=== PATIENT | female | born 2005 | race Two or more races ===

== ENCOUNTER 2024-08-11 14:48 | Emergency (ER) | payer MEDICAID, OTHER ==
[~2024-08-11] VITALS: Ht 160 cm; Wt 54.3 kg
[2024-08-11] MEDS: ONDANSETRON HCL 4 MG/2 ML VIAL IV ONE (15:30)
--- NOTE | 2024-08-11 15:33 | ED.PDOC ---
GI ASSESSMENT HPI Comments 19-year-old presents since for food poisoning x1 day. Alleviation therapies were not tried Denies fevers chills night sweats unintentional weight loss Denies nausea vomiting diarrhea Denies blood in the stool Denies sick contact with similar symptoms Denies family history of GI cancer Denies urgency, frequency, hematuria Denies vaginal discharge Last menstrual two weeks ago Chief Complaint: Abdominal Pain Time Seen by MD: 15:29 Primary Care Provider: NONE Reviewed Notes: Nurses Notes, Medications, Allergies Allergies: Coded Allergies: NO KNOWN ALLERGIES (Unverified , 08/11/24) Home Meds Active Scripts Ciprofloxacin Hcl (Ciprofloxacin Hcl) 500 Mg Tab, 1 TAB PO BID for 7 Days, #14 TAB 0 Refills Prov:BRIONNA DOCKERY 08/11/24 Sucralfate (CARAFATE) 1 Gm Tab, 1 GM PO TID for 2 Days, #6 TAB 0 Refills Prov:RODOLFO DIALLO NP 08/11/24 Famotidine (PEPCID TABLET) 20 Mg Tb, 1 TAB PO BIDP PRN for 7 Days, #14 TAB 0 Refills Prov:RODOLFO DIALLO NP 08/11/24 Ondansetron HCl (Ondansetron) 4 Mg Tab, 4 MG PO Q8HP PRN for 3 Days, #9 TAB 0 Refills Prov:RODOLFO DIALLO NP 08/11/24 Information Source: Patient Mode of Arrival: Ambulatory Past Medical History PAST MEDICAL HISTORY: GERD Surgical History: Denies all surgeries [employer] History: No Pertinent [employer]OR History Family History Family History: Reviewed,noncontributory to illness, Unknown Social History Smoker: Non-Smoker Alcohol: Denies ETOH Use Drugs: Denies Drug Use Lives In: Home Constitutional: denies: chills, diaphoresis, fatigue, fever, malaise, sweats, weakness, others EENTM: denies: blurred vision, double vision, ear bleeding, ear discharge, ear drainage, ear pain, ear ringing, eye pain, eye redness, hearing loss, mouth pain, mouth swelling, nasal discharge, nose bleeding, nose congestion, nose pain, photophobia, tearing, throat pain, throat swelling, voice changes, others Respiratory: denies: cough, hemoptysis, orthopnea, SOB at rest, shortness of breath, SOB with excertion, stridor, wheezing, others Cardiovascular: denies: chest pain, dizzy spells, diaphoresis, Dyspnea on exertion, edema, irregular heart beat, left arm pain, lightheadedness, palpitations, PND, syncope, others Gastrointestinal: reports: others (As stated in HPI) Genitourinary: denies: abnormal vagina bleeding, burning, dyspareunia, dysuria, flank pain, frequency, hematuria, incontinence, pain, , vagina discharge, urgency, others Neurological: denies: dizziness, fainting, headache, left sided numbness, left sided weakness, numbness, paresthesia, pre-existing deficit, right sided numbness, right sided weakness, seizure, speech problems, tingling, tremors, weakness, others Musculoskeletal: denies: back pain, gout, joint pain, joint swelling, muscle pain, muscle stiffness, neck pain, others Integumetry: denies: bruises, change in color, change in hair/nails, dryness, laceration, lesions, lumps, rash, wounds, others Allergic/Immunocompromised: denies: Difficulty Healing, Frequent Infections, Hives, Itching, others Hematologic/Lymphatic: denies: anemia, blood clots, easy bleeding, easy bruising, swollen glands, others Endocrine: denies: excessive hunger, excessive sweating, excessive thirst, excessive urination, flushing, intolerance to cold, intolerance to heat, unexplained weight gain, unexplained weight loss, others Psychiatric: denies: anxiety, bipolar disorder, depression, hopeless, panic disorder, schizophrenia, sleepless, suicidal, others All Other Systems: Reviewed and Negative (Per HPI) Physical Exam General Appearance: No Apparent Distress HEENT: Normal ENT Inspection, PERRL/EOMI, Pharynx Normal, TMs Normal Neck: Full Range of Motion, Non-Tender, Normal Respiratory: Chest Non-Tender, Lungs Clear, No Accessory Muscle Use, No Respiratory Distress, Normal Breath Sounds Cardiovascular: No Murmur, No Gallop, Regular Rate/Rhythm Breast Exam: Deferred Gastrointestinal: Epigastric (Slight TTP to epigastric region of abdomen noted. No rebound/guarding noted. No hernia/masses/skin changes appreciated. No other TTP to abdomen noted), No Organomegaly, No Pulsatile Mass, Normal Bowel Sounds, Soft Genitalia: Deferred Pelvic: Deferred Rectal: Deferred Extremities: Normal capillary refill, Normal range of motion Neurologic: Alert, No Motor Deficits, Normal Affect, Normal Mood, No Sensory Deficits Cerebellar Function: Normal Reflexes: Normal Skin: Dry, Normal Color, Warm Peripheral Pulses: 2+ Radial (R), 2+ Radial (L), 2+ Brachial (R), 2+ Brachial (L) Lymphatic: No Adenopathy Was a procedure done? Was a procedure done?: No Sedation Sedation?: No GI differential Dx Differential Diagnosis: Appendicitis, GI hemorrhage, Ischemic Bowel X-Ray, Labs, Meds, VS Vital Signs Date Time Temp Pulse Resp B/P (MAP) Pulse Ox O2 Delivery O2 Flow Rate FiO2 08/11/24 16:00 81 18 96 Room Air 08/11/24 16:00 99.2 81 18 121/65 (83) 96 99.2 08/11/24 15:28 99.2 81 18 121/65 (83) 96 Lab Test 08/11/24 17:38 08/11/24 17:00 Range/Units White Blood Count 9.0 4.4-10.8 10^3/uL Red Blood Count 4.47 4.0-5.20 10^6/uL Hemoglobin 14.3 12.2-16.2 g/dL Hematocrit 41.2 36.0-46.0 % Mean Corpuscular Volume 92.1 80.0-100.0 fL Mean Corpuscular Hemoglobin 32.1 H 28.0-32.0 pg Mean Corpuscular Hemoglobin Concent 34.8 32.0-36.0 g/dL Red Cell Distribution Width 12.3 11.8-14.3 % Platelet Count 308 140-450 10^3/uL Mean Platelet Volume 8.0 6.9-10.8 fL Neutrophils (%) (Auto) 85.7 H 37.0-80.0 % Lymphocytes (%) (Auto) 9.4 L 10.0-50.0 % Monocytes (%) (Auto) 4.1 0.0-12.0 % Eosinophils (%) (Auto) 0.0 0.0-7.0 % Basophils (%) (Auto) 0.8 0.0-2.0 % Neutrophils # (Auto) 7.7 1.6-8.6 10 ^3/uL Lymphocytes # (Auto) 0.8 0.4-5.4 10 ^3/uL Monocytes # (Auto) 0.4 0-1.3 10 ^3/uL Eosinophils # (Auto) 0 0-0.8 10 ^3/uL Basophils # (Auto) 0.1 0-0.2 10 ^3/uL Nucleated Red Blood Cells 0.0 % Sodium Level 140 136-145 mmol/L Potassium Level 3.7 3.5-5.1 mmol/L Chloride Level 105 98-107 mmol/L Carbon Dioxide Level 27 20-31 mmol/L Anion Gap 8 5-15 Blood Urea Nitrogen 8 L 9-23 mg/dL Creatinine 0.88 0.550-1.02 mg/dL Glomerular Filtration Rate Calc 96 >90 mL/min BUN/Creatinine Ratio 9.1 L 10.0-20.0 Serum Glucose 111 H 74-106 mg/dL Calcium Level 10.1 8.7-10.4 mg/dL Urine Color Yellow Yellow Urine Clarity Clear Clear Urine pH 6.0 5.0-9.0 Urine Specific [place] 1.033 1.001-1.035 Urine Protein 1+ H Negative Urine Ketones 3+ H Negative Urine Blood Negative Negative /uL Urine Nitrite Negative Negative Urine Bilirubin Negative Negative Urine Urobilinogen Normal Negative mg/dL Urine Leukocyte Esterase 1+ Negative /uL Urine RBC 1 0 - 4 /hpf Urine WBC 4 0 - 5 /hpf Urine Squamous Epithelial Cells Few <5 /hpf Urine Bacteria None seen None Seen /hpf Urine Mucus Few None Seen Urine Glucose Normal Normal mg/dL Urine Test Negative Negative Current Medications Medications (Trade) Dose Ordered Sig/Yeimy Route Start Time Stop Time Status Last Admin Sodium Chloride 1,000 ml @ 1,000 mls/hr Q1H ONCE IVB 08/11/24 15:30 08/11/24 16:29 DC 08/11/24 16:09 Pantoprazole Sodium (Protonix Tablet) 40 mg ONCE ONCE PO 08/11/24 19:00 08/11/24 18:56 DC 08/11/24 18:50 CBC reviewed without any significant abnormalities BMP reviewed without any significant abnormalities Urinalysis reviewed-urine leukocyte esterase 1+, urine blood negative, urine ketones 3+, urine protein 1+ Urine reviewed-negative Hep-Lock IV ordered NS 1 L IV ordered Zofran 4 mg IV ordered Protonix 40 mg PO ordered Patient had improvement in symptoms, tolerating p.o. intake well and denied any abdominal pain prior to discharge Diet education discussed Advised to follow up with PCP in 1-2 days Patient verbalized understanding and agreeable with current plan of care Advised to return to ER immediately if symptoms worsen Time of 1ST Reevaluation: 18:02 Reevaluation 1ST: Improved Patient Education/Counseling: Diagnosis, Treatment, Prognosis, Need For Follow Up Family Education/Counseling: Diagnosis, Treatment, Prognosis, Need For Follow Up Change of Shift?: Yes (Endoresed from BLANE Shafer at 6pm) Departure 1 Departure Time of Disposition: 18:22 Impression: Primary Impression: Gastroenteritis Additional Impression: UTI (urinary tract infection) Qualified Codes: N30.00 - Acute cystitis without hematuria Disposition: HOME / SELF CARE / HOMELESS Condition: Stable e-Prescriptions Ciprofloxacin Hcl (Ciprofloxacin Hcl) 500 Mg Tab 1 TAB PO BID for 7 Days, #14 TAB 0 Refills Prov: BRIONNA DOCKERY 08/11/24 Sucralfate (CARAFATE) 1 Gm Tab 1 GM PO TID for 2 Days, #6 TAB 0 Refills Prov: RODOLFO DIALLO NP 08/11/24 Famotidine (PEPCID TABLET) 20 Mg Tb 1 TAB PO BIDP PRN for 7 Days, #14 TAB 0 Refills Prov: RODOLFO DIALLO NP 08/11/24 Ondansetron HCl (Ondansetron) 4 Mg Tab 4 MG PO Q8HP PRN for 3 Days, #9 TAB 0 Refills Prov: RODOLFO DIALLO NP 08/11/24 Discharged With: Significant Other Critical Care Note Critical Care Time?: No Stability Stability form required: No Heart Score Heart Score: Heart Score Response (Comments) Value History N/A 0 EKG N/A 0 Age N/A 0 Risk Factors N/A 0 Troponin N/A 0 Total 0 RODOLFO DIALLO NP Aug 11, 2024 15:33 BRIONNA DOCKERY Aug 11, 2024 18:27
[2024-08-11 16:00] VITALS: BP 121/65; PULSE 81; RESP 18; TEMP 99.2; O2SAT 96
[2024-08-11] MEDS: SODIUM CHLORIDE 0.9% 1,000 ML IVB ONE (16:09)
[2024-08-11 17:26] LABS: Urine Bacteria None Seen /hpf (None Seen)
[2024-08-11 17:31] LABS: Urine Blood Negative /uL (Negative); Urine Clarity Clear (Clear); Urine Color Yellow (Yellow); Urine Mucus FEW (None Seen); Urine Protein, UAD 1+ (Negative); Urine Specific Gravity 1.033 (1.001-1.035); Urine Urobilinogen Normal (Negative); Urine WBC 4 /hpf (0 - 5)
[2024-08-11] MEDS ORDERED: ONDA-155 PO (17:42)
[2024-08-11] MEDS ORDERED: FAMO20TA10 PO (17:42)
[2024-08-11] MEDS ORDERED: SUCR1TAB31 PO (17:43)
[2024-08-11 18:14] LABS: Basophils # (auto) 0.1 10 ^3/uL (0-0.2); Basophils % (auto) 0.8 % (0.0-2.0); Eosinophils # (auto) 0 10 ^3/uL (0-0.8); Hematocrit 41.2 % (36.0-46.0); Hemoglobin 14.3 g/dL (12.2-16.2); Lymphocytes # (auto) 0.8 10 ^3/uL (0.4-5.4); Lymphocytes % (auto) 9.4 % (10.0-50.0); Mean Corpuscular Hemoglobin 32.1 pg (28.0-32.0); Mean Corpuscular Hgb Conc. 34.8 g/dL (32.0-36.0); Mean Corpuscular Volume 92.1 fL (80.0-100.0); Monocytes # (auto) 0.4 10 ^3/uL (0-1.3); Monocytes % (auto) 4.1 % (0.0-12.0); Neutrophils # (auto) 7.7 10 ^3/uL (1.6-8.6); Neutrophils % (auto) 85.7 % (37.0-80.0); Platelet Count (auto) 308 10^3/uL (140-450); Red Blood Cells 4.47 10^6/uL (4.0-5.20); Red Cell Distribution Width 12.3 % (11.8-14.3)
[2024-08-11 18:25] LABS: Chloride 105 mmol/L (98-107); Potassium 3.7 mmol/L (3.5-5.1); Sodium 140 mmol/L (136-145)
[2024-08-11 18:26] LABS: Anion Gap 8 (5-15); Carbon Dioxide 27 mmol/L (20-31)
[2024-08-11 18:27] LABS: Calcium 10.1 mg/dL (8.7-10.4)
[2024-08-11] MEDS ORDERED: CIPR500T4 PO (18:27)
[2024-08-11 18:31] LABS: Glucose 111 mg/dL (74-106)
[2024-08-11 18:32] LABS: BUN/Creatinine Ratio 9.1 (10.0-20.0); Blood Urea Nitrogen 8 mg/dL (9-23)
[2024-08-11] MEDS: PANTOPRAZOLE 40 MG/10 ML VIAL INJ IV ONE (18:43)
[2024-08-11] MEDS: PANTOPRAZOLE 40 MG TAB PO ONE (18:50)
== END 2024-08-11 18:53 | disposition home or self-care (01) ==
LOC: ER 14:48
DX: K52.9 Noninfective gastroenteritis and colitis, unspecified (principal); K21.9 Gastro-esophageal reflux disease without esophagitis; N39.0 Urinary tract infection, site not specified; Z79.899 Other long term (current) drug therapy; Z32.02 Encounter for pregnancy test, result negative
CPT/HCPCS: 36415; 80048; 81001; 81025; 85025; 96360; 99283; J2405; J2470; J7030